=== PATIENT | male | born 1945 | race American Indian/Alaskan Native ===

== ENCOUNTER 2017-04-07 13:00 | Emergency (ER) | payer MEDICARE ==
[2017-04-07] MEDS ORDERED: Sodium Chloride 0.9% 10 ML Syringe FLUSH PRN (13:14)
[2017-04-07] MEDS ORDERED: Iopamidol 755 Mg/ML 100 ML Bottle IVPUSH ONE (13:24)
--- NOTE | 2017-04-07 13:47 | EDM.PDOC ---
ED HPI GENERAL MEDICAL PROBLEM - General Chief Complaint: Lower Extremity Injury/Pain Stated Complaint: [facility] Time Seen by Provider: 04/07/17 13:07 Source of Information: Reports: Patient History Limitations: Reports: No Limitations - History of Present Illness INITIAL COMMENTS - FREE TEXT/NARRATIVE: 72-year-old male presents to the [facility] for evaluation and treatment of low back and left hip pain. Per EMS records the patient onto his left side. He is complaining of left hip pain and low back pain. Did not pass out nor lose consciousness. Upon my exam the patient is alert and orientated. He is complaining of left hip pain and low back pain. Reports bilateral hip pain with movement. He is currently wearing a neck brace as he had neck surgery several months ago. He wears this at all times. He is also reporting some abdominal pain. Denies any loss of consciousness, headaches, nausea or vomiting. Patient's past medical history of renal cell carcinoma, congestive heart failure and diabetes. He is currently being managed by Dr. Rock in [place]. Patient reports that he has been having frequent urinary tract infections the last few months. He has a benign but does not know which antibiotics he is on. - Related Data Allergies Allergy/AdvReac Type Severity Reaction Status Date / Time No Known Allergies Allergy Verified 04/07/17 13:23 Review of Systems - Review of Systems Review Of Systems: See Below GI/Abdominal: Reports: Abdominal Pain. Denies: Nausea, Vomiting Musculoskeletal: Reports: Neck Pain (chronic - no change), Back Pain Neurological: Denies: Headache Trauma Exam - Physical Exam Exam: See Below Exam Limited By: No Limitations General Appearance: Reports: Alert, WD/WN, No Apparent Distress, Obese Head: Reports: Atraumatic, Normocephalic Eyes: Bilateral Eye: PERRL Ears: Reports: Normal External Exam Nose: Reports: Normal Inspection Throat/Mouth: Reports: Normal Inspection, Normal Lips, Normal Voice, No Airway Compromise Neck: Reports: Other (cervical collar - wears at all times) Respiratory Exam: Reports: No Respiratory Distress, Lungs Clear, Normal Breath Sounds Cardiovascular: Reports: Normal Peripheral Pulses, Regular Rate, Rhythm, No Murmur GI/Abdominal: Reports: Normal Bowel Sounds, Tenderness (generalized) Extremities: No Evidence of Injury, Pain with Movement (rotation of the right and left hip) Neurologic: Reports: Alert Skin: Reports: Normal Color, Warm/Dry - [place] Coma Score Best Eye Response (Richard): (4) Open Spontaneously Best Verbal Response (Richard): (5) Oriented Best Motor Response ([place]): (6) Obeys Commands Course - Vital Signs Last Recorded V/S: Last Vital Signs Temp 35.8 C 04/07/17 13:17 Pulse 60 04/07/17 15:06 Resp 24 H 04/07/17 13:17 BP 95/57 L 04/07/17 15:06 Pulse Ox 90 L 04/07/17 13:17 - Orders/Labs/Meds Orders: Active Orders 24 hr Category Date Time Status Cardiac Monitoring [RC] . DIRECTED Care 04/07/17 13:14 Active EKG Documentation Completion [RC] STAT Care 04/07/17 13:14 Active Oxygen Therapy [RC] ASDIRECTED Care 04/07/17 13:14 Active Peripheral IV Care [RC] . DIRECTED Care 04/07/17 13:15 Active Chest 1V Frontal [CR] Stat Exams 04/07/17 14:59 Taken Hip wo Cont Lt [CT] Stat Exams 04/07/17 13:22 Taken CULTURE BLOOD [BC] Stat Lab 04/07/17 14:30 Received CULTURE BLOOD [BC] Stat Lab 04/07/17 14:40 Received CULTURE URINE [RM] Stat Lab 04/07/17 14:26 Received Sodium Chloride 0.9% [Normal Saline] 1,000 ml Med 04/07/17 14:15 Active IV ASDIRECTED Sodium Chloride 0.9% [Saline Flush] Med 04/07/17 13:14 Active 10 ml FLUSH ASDIRECTED PRN Blood Culture x2 Reflex Set [OM.PC] Stat Oth 04/07/17 14:08 Ordered Peripheral IV Insertion Adult [OM.PC] Routine Oth 04/07/17 13:10 Ordered Medication Orders Sodium Chloride (Normal Saline) 1,000 mls @ 75 mls/hr IV ASDIRECTED AURA Last Admin: 04/07/17 14:16 Dose: 75 mls/hr Sodium Chloride (Saline Flush) 10 ml FLUSH ASDIRECTED PRN PRN Reason: Keep Vein Open Last Admin: 04/07/17 13:39 Dose: 10 ml Labs: Laboratory Tests 04/07/17 04/07/17 04/07/17 Range/Units 13:50 13:50 13:50 WBC 14.37 H (4.23-9.07) K/mm3 RBC 2.64 L (4.63-6.08) M/mm3 Hgb 8.4 L (13.7-17.5) gm/L Hct 25.0 L (40.1-51.0) % MCV 94.7 H (79.0-92.2) fl MCH 31.8 (25.7-32.2) pg MCHC 33.6 (32.2-35.5) g/dl RDW Std Deviation 47.2 H (35.1-43.9) fL Plt Count 259 (163-337) K/mm3 MPV 9.9 (9.4-12.3) fl Neut % (Auto) 91.5 H (34.0-67.9) % Lymph % (Auto) 2.6 L (21.8-53.1) % [place] % (Auto) 4.5 L (5.3-12.2) % Eos % (Auto) 0.2 L (0.8-7.0) Baso % (Auto) 0.2 (0.1-1.2) % Neut # (Auto) 13.14 H (1.78-5.38) K/mm3 Lymph # (Auto) 0.37 L (1.32-3.57) K/mm3 [place] # (Auto) 0.65 (0.30-0.82) K/mm3 Eos # (Auto) 0.03 L (0.04-0.54) K/mm3 Baso # (Auto) 0.03 (0.01-0.08) K/mm3 Manual Slide Review Abnormal smear PT 15.3 H (8.0-13.0) SECONDS INR 1.38 Sodium 130 L (136-145) mEq/L Potassium 4.1 (3.5-5.1) mEq/L Chloride 98 (98-107) mEq/L Carbon Dioxide 22 (21-32) mEq/L Anion Gap 14.1 (5-15) BUN 89 H (7-18) mg/dL Creatinine 4.3 H (0.7-1.3) mg/dL Est Cr Clr Drug Dosing 16.78 mL/min Estimated GFR (MDRD) 14 (>60) mL/min BUN/Creatinine Ratio 20.7 H (14-18) Glucose 88 (83-115) mg/dL Lactic Acid (0.4-2.0) mmol/L Calcium 7.7 L (8.5-10.1) mg/dL Total Bilirubin 0.4 (0.2-1.0) mg/dL AST 51 H (15-37) U/L ALT 51 (16-63) U/L Alkaline Phosphatase 121 H (46-116) U/L C-Reactive Protein (<1.0) mg/dL B-Natriuretic Peptide (0-100) pg/mL Total Protein 6.2 L (6.4-8.2) g/dl Albumin 1.7 L (3.4-5.0) g/dl Globulin 4.5 gm/dL Albumin/Globulin Ratio 0.4 L (1-2) Urine Color (Yellow) Urine Appearance (Clear) Urine pH (5.0-8.0) Ur Specific [place] (1.005-1.030) Urine Protein (Negative) Urine Glucose (UA) (Negative) Urine Ketones (Negative) Urine Occult Blood (Negative) Urine Nitrite (Negative) Urine Bilirubin (Negative) Urine Urobilinogen (0.2-1.0) Ur Leukocyte Esterase (Negative) Urine RBC (0-5) /hpf Urine WBC (0-5) /hpf Ur Epithelial Cells (0-5) /hpf Amorphous Sediment (NOT SEEN) /hpf Urine Bacteria (FEW) /hpf Urine Mucus (FEW) /hpf 04/07/17 04/07/17 04/07/17 Range/Units 13:50 13:50 14:27 WBC (4.23-9.07) K/mm3 RBC (4.63-6.08) M/mm3 Hgb (13.7-17.5) gm/L Hct (40.1-51.0) % MCV (79.0-92.2) fl MCH (25.7-32.2) pg MCHC (32.2-35.5) g/dl RDW Std Deviation (35.1-43.9) fL Plt Count (163-337) K/mm3 MPV (9.4-12.3) fl Neut % (Auto) (34.0-67.9) % Lymph % (Auto) (21.8-53.1) % [place] % (Auto) (5.3-12.2) % Eos % (Auto) (0.8-7.0) Baso % (Auto) (0.1-1.2) % Neut # (Auto) (1.78-5.38) K/mm3 Lymph # (Auto) (1.32-3.57) K/mm3 [place] # (Auto) (0.30-0.82) K/mm3 Eos # (Auto) (0.04-0.54) K/mm3 Baso # (Auto) (0.01-0.08) K/mm3 Manual Slide Review PT (8.0-13.0) SECONDS INR Sodium (136-145) mEq/L Potassium (3.5-5.1) mEq/L Chloride (98-107) mEq/L Carbon Dioxide (21-32) mEq/L Anion Gap (5-15) BUN (7-18) mg/dL Creatinine (0.7-1.3) mg/dL Est Cr Clr Drug Dosing mL/min Estimated GFR (MDRD) (>60) mL/min BUN/Creatinine Ratio (14-18) Glucose (83-115) mg/dL Lactic Acid (0.4-2.0) mmol/L Calcium (8.5-10.1) mg/dL Total Bilirubin (0.2-1.0) mg/dL AST (15-37) U/L ALT (16-63) U/L Alkaline Phosphatase (46-116) U/L C-Reactive Protein 19.4 H* (<1.0) mg/dL B-Natriuretic Peptide 1045 H (0-100) pg/mL Total Protein (6.4-8.2) g/dl Albumin (3.4-5.0) g/dl Globulin gm/dL Albumin/Globulin Ratio (1-2) Urine Color Yellow (Yellow) Urine Appearance Slt cloudy H (Clear) Urine pH 6.0 (5.0-8.0) Ur Specific [place] 1.015 (1.005-1.030) Urine Protein Negative (Negative) Urine Glucose (UA) Negative (Negative) Urine Ketones Negative (Negative) Urine Occult Blood 3+ H (Negative) Urine Nitrite Negative (Negative) Urine Bilirubin Negative (Negative) Urine Urobilinogen 1.0 (0.2-1.0) Ur Leukocyte Esterase 2+ H (Negative) Urine RBC 10-20 H (0-5) /hpf Urine WBC 10-20 H (0-5) /hpf Ur Epithelial Cells 0-5 (0-5) /hpf Amorphous Sediment Few H (NOT SEEN) /hpf Urine Bacteria Few (FEW) /hpf Urine Mucus Not seen (FEW) /hpf 04/07/17 Range/Units 14:30 WBC (4.23-9.07) K/mm3 RBC (4.63-6.08) M/mm3 Hgb (13.7-17.5) gm/L Hct (40.1-51.0) % MCV (79.0-92.2) fl MCH (25.7-32.2) pg MCHC (32.2-35.5) g/dl RDW Std Deviation (35.1-43.9) fL Plt Count (163-337) K/mm3 MPV (9.4-12.3) fl Neut % (Auto) (34.0-67.9) % Lymph % (Auto) (21.8-53.1) % [place] % (Auto) (5.3-12.2) % Eos % (Auto) (0.8-7.0) Baso % (Auto) (0.1-1.2) % Neut # (Auto) (1.78-5.38) K/mm3 Lymph # (Auto) (1.32-3.57) K/mm3 [place] # (Auto) (0.30-0.82) K/mm3 Eos # (Auto) (0.04-0.54) K/mm3 Baso # (Auto) (0.01-0.08) K/mm3 Manual Slide Review PT (8.0-13.0) SECONDS INR Sodium (136-145) mEq/L Potassium (3.5-5.1) mEq/L Chloride (98-107) mEq/L Carbon Dioxide (21-32) mEq/L Anion Gap (5-15) BUN (7-18) mg/dL Creatinine (0.7-1.3) mg/dL Est Cr Clr Drug Dosing mL/min Estimated GFR (MDRD) (>60) mL/min BUN/Creatinine Ratio (14-18) Glucose (83-115) mg/dL Lactic Acid 0.8 (0.4-2.0) mmol/L Calcium (8.5-10.1) mg/dL Total Bilirubin (0.2-1.0) mg/dL AST (15-37) U/L ALT (16-63) U/L Alkaline Phosphatase (46-116) U/L C-Reactive Protein (<1.0) mg/dL B-Natriuretic Peptide (0-100) pg/mL Total Protein (6.4-8.2) g/dl Albumin (3.4-5.0) g/dl Globulin gm/dL Albumin/Globulin Ratio (1-2) Urine Color (Yellow) Urine Appearance (Clear) Urine pH (5.0-8.0) Ur Specific [place] (1.005-1.030) Urine Protein (Negative) Urine Glucose (UA) (Negative) Urine Ketones (Negative) Urine Occult Blood (Negative) Urine Nitrite (Negative) Urine Bilirubin (Negative) Urine Urobilinogen (0.2-1.0) Ur Leukocyte Esterase (Negative) Urine RBC (0-5) /hpf Urine WBC (0-5) /hpf Ur Epithelial Cells (0-5) /hpf Amorphous Sediment (NOT SEEN) /hpf Urine Bacteria (FEW) /hpf Urine Mucus (FEW) /hpf Meds: Medications Generic Name Dose Route Start Last Admin Trade Name Freq PRN Reason Stop Dose Admin Sodium Chloride 1,000 mls @ 75 mls/hr 04/07/17 14:15 04/07/17 14:16 Normal Saline IV 75 mls/hr ASDIRECTED AURA Administration Sodium Chloride 10 ml 04/07/17 13:14 04/07/17 13:39 Saline Flush FLUSH 10 ml ASDIRECTED PRN Administration Keep Vein Open Discontinued Medications Generic Name Dose Route Start Last Admin Trade Name Freq PRN Reason Stop Dose Admin Hydromorphone HCl 1 mg 04/07/17 14:43 04/07/17 14:51 Dilaudid IVPUSH 04/07/17 14:44 1 mg ONETIME ONE Administration Ceftriaxone Sodium 2 gm/ 100 mls @ 200 mls/hr 04/07/17 14:09 04/07/17 14:17 Sodium Chloride IV 04/07/17 14:38 200 mls/hr ONETIME ONE Administration Cefepime HCl 1 gm/ Premix 50 mls @ 100 mls/hr 04/07/17 17:06 04/07/17 17:50 IV 04/07/17 17:35 100 mls/hr ONETIME ONE Administration Iopamidol 100 ml 04/07/17 13:24 04/07/17 13:35 Isovue-370 (76%) IVPUSH 04/07/17 13:25 100 ml ONETIME ONE Administration - Radiology Interpretation Free Text/Narrative:: Chest one view Impression: 1. Findings suspicious for mild CHF. 2. Slight left basilar atelectasis. 3. Other incidental findings. Cervical spine CT Impression: 1. Previous surgery. 2. Degenerative change as noted above. 3. Nothing acute is appreciated on CT study of the cervical spine. thoracic spine Ct Impression: 1. Incidental findings. Nothing acute is appreciated on CT study of the thoracic spine. lumbar spine ct Impression: 1. Degenerative change as noted above. 2. Nothing acute is appreciated on CT study of the lumbar spine. head CT Impression: 1. Mild senescent change. 2. Sinus findings likely pre-existing and chronic. 3. Contrast seen within the brain from prior CT exam of the abdomen and pelvis. This limits evaluation for smaller areas of intracranial hemorrhage. Nothing acute is otherwise identified on head CT study. hip left ct Impression: 1. Incidental findings. No acute abnormality is identified on CT study of the left hip. abdomen and pelvis with contrast ct Impression: 1. 2 large fluid collections adjacent to the left kidney pushing the left kidney anteriorly and causing mass effect on the left psoas muscle. 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 Findings may relate to rupture of the renal pelvis from slightly dilated pelvis due to functional UPJ obstruction with rupture due to trauma. 2. 2 cysts within the left kidney. 3. Additional low density abnormality within the more anterior mid aspect of the left kidney does not appear to have a cyst Hounsfield unit measurements of a cyst and could represent a small renal laceration. 4. Other incidental findings as noted above. - Re-Assessments/Exams Free Text/Narrative Re-Assessment/Exam: 04/07/17 17:54 The patient's has presented to the ER. She states that she witnessed the fall. She is reporting that he fell onto the right hip. She states that his legs gave out. This appears to be a chronic problem. Reports that he fell onto his right side and hit his head on a cabinet. He did not lose consciousness. States at the time of the fall he was walking not wearing his neck brace. He presented to the ER with his neck brace on. Reports that his surgery to his neck was several months ago. of patient's is also concerned about his constipation. Reports he has not had a bowel movement in about a week. Labs have returned. white blood cell count is 14.37, hemoglobin is 8.4 and plts 259. PT is 15.3, INR is 1.3. Sodium is 130, potassium 4.1 and chloride is 98. Glucose is 88. Anion gap is 14.1. Creatinine is 4.3. BNP is elevated at 1045. UA has 3+ blood and 2+ leuks CRP is elevated at 19.4 I was able to review the patient's most recent urine culture results. Show that he has 2 strains of Serratia marcescens. I gave him 1 g Rocephin upon arrival to the ER as he meds criteria for shock and I was concerned he was in septic shock from his recent urinary tract infections. I then gave him 1 g of Maxipime after it was confirmed that the infection is susceptible to this. I discussed the case with Dr. Carty of our hospitals public relations senior associate. She feels that given the CT findings he would require higher level of care. I discussed the case with Dr. Cottrell, hospitalist public relations senior associate within [facility]. He agrees to accept the patient. Departure - Departure Time of Disposition: 18:11 Disposition: DC/Tfer to Acute Hospital 02 Condition: serious Clinical Impression: Fall, Kidney laceration - Discharge Information Forms: ED Department Discharge Additional Instructions: Patient to go by air ambulance. Dr. Cottrell and then accepting at [facility] in [place]. - My Orders Last 24 Hours: My Active Orders 04/07/17 13:10 Peripheral IV Insertion Adult [OM.PC] Routine 04/07/17 13:14 Cardiac Monitoring [RC] . DIRECTED EKG Documentation Completion [RC] STAT Oxygen Therapy [RC] ASDIRECTED Sodium Chloride 0.9% [Saline Flush] 10 ml FLUSH ASDIRECTED PRN 04/07/17 13:15 Peripheral IV Care [RC] . DIRECTED 04/07/17 13:22 Hip wo Cont Lt [CT] Stat 04/07/17 14:08 Blood Culture x2 Reflex Set [OM.PC] Stat 04/07/17 14:15 Sodium Chloride 0.9% [Normal Saline] 1,000 ml IV ASDIRECTED 04/07/17 14:26 CULTURE URINE [RM] Stat 04/07/17 14:30 CULTURE BLOOD [BC] Stat 04/07/17 14:40 CULTURE BLOOD [BC] Stat 04/07/17 14:59 Chest 1V Frontal [CR] Stat - Assessment/Plan Last 24 Hours: My Active Orders 04/07/17 13:10 Peripheral IV Insertion Adult [OM.PC] Routine 04/07/17 13:14 Cardiac Monitoring [RC] . DIRECTED EKG Documentation Completion [RC] STAT Oxygen Therapy [RC] ASDIRECTED Sodium Chloride 0.9% [Saline Flush] 10 ml FLUSH ASDIRECTED PRN 04/07/17 13:15 Peripheral IV Care [RC] . DIRECTED 04/07/17 13:22 Hip wo Cont Lt [CT] Stat 04/07/17 14:08 Blood Culture x2 Reflex Set [OM.PC] Stat 04/07/17 14:15 Sodium Chloride 0.9% [Normal Saline] 1,000 ml IV ASDIRECTED 04/07/17 14:26 CULTURE URINE [RM] Stat 04/07/17 14:30 CULTURE BLOOD [BC] Stat 04/07/17 14:40 CULTURE BLOOD [BC] Stat 04/07/17 14:59 Chest 1V Frontal [CR] Stat
[2017-04-07] MEDS ORDERED: cefTRIAXone 2 GM in Sodium Chloride 0.9% 100 ML IV ONE (14:09)
[2017-04-07] MEDS ORDERED: Sodium Chloride 0.9% 1,000 ML IV SCH (14:15)
--- NOTE | 2017-04-07 14:22 | CT ---
CT lumbar spine Technique: Multiple axial sections were obtained from the top of T10 inferiorly to the L5-S1 disc. Reconstructed sagittal and coronal images were reviewed. Disc space narrowing is noted at L5-S1 with vacuum phenomena. Anterior osteophytes are seen at T10-T11. Smaller osteophytes are noted within the lumbar spine. Slight posterior osteophytes are seen at L5-S1. Minimal degenerative apophyseal change is noted within the lower lumbar spine. No fracture or abnormal subluxation is seen. Impression: 1. Degenerative change as noted above. 2. Nothing acute is appreciated on CT study of the lumbar spine. Diagnostic code #2
--- NOTE | 2017-04-07 14:23 | CT ---
CT abdomen and pelvis Technique: Multiple axial sections were obtained from above the dome of the diaphragm inferiorly through the pubic symphysis. Intravenous contrast was utilized. Delayed images were also obtained through the abdomen and pelvis. Findings: Mild atelectasis is seen within both lung bases. Liver shows no focal abnormality. Spleen appears within normal limits. Adrenal glands show no nodule. 2 cysts are seen within the upper left kidney measuring 3.2 cm in size and 3.3 cm in size. Slightly prominent collecting system of the left kidney is seen. There is fluid filled collections being seen appearing to extend outside the renal pelvis on the left side measuring 10.8 cm in size which pushes the kidney anteriorly. Second fluid collection is seen more posteriorly which causes compression of the psoas muscle measuring 10.7 cm cm in size (cranial caudal measurement). These findings do not have the Hounsfield unit measurements of blood and most likely represent areas of urinomas. Findings are suggestive of possible UPJ obstruction with rupture of the renal pelvis with subsequent leakage of urine. Left kidney also shows a low-density area more anteriorly within the mid aspect not representing a simple cyst and possibly due to small renal laceration. Right kidney appears within normal limits. Delayed images shows no contrast excretion from either kidney which likely relates to dehydration. Gallbladder shows no calcified gallstones. Adrenal glands show no nodule. Pancreas is within normal limits. Aorta shows diffuse atherosclerotic change without focal aneurysm. No pelvic mass or adenopathy is seen. Increased stool is noted within the rectosigmoid region. Bone window settings were reviewed which shows mild scattered degenerative change. Nothing acute is seen within the bony structures. Small fat-containing left inguinal hernia is noted. Impression: 1. 2 large fluid collections adjacent to the left kidney pushing the left kidney anteriorly and causing mass effect on the left psoas muscle. 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 Findings may relate to rupture of the renal pelvis from slightly dilated pelvis due to functional UPJ obstruction with rupture due to trauma. 2. 2 cysts within the left kidney. 3. Additional low density abnormality within the more anterior mid aspect of the left kidney does not appear to have a cyst Hounsfield unit measurements of a cyst and could represent a small renal laceration. 4. Other incidental findings as noted above. Diagnostic code #5
[2017-04-07] MEDS ORDERED: HYDROmorphone 1 MG/ML Syringe IVPUSH ONE (14:43)
[2017-04-07 15:19] VITALS: BP 95/57
--- NOTE | 2017-04-07 16:45 | CT ---
CT cervical spine Technique: Multiple axial sections were obtained from above the C1 inferiorly to the bottom of T1. Reconstructed sagittal and coronal images were reviewed. Comparison: Previous MRI cervical spine exam of 06/19/16. Findings: Anterior plate and screws are noted at C5, C6 and C7. Mild disc space narrowing is noted at C3-C4, C45 and C7-T1. Mild scattered anterior endplate osteophytes are seen throughout the cervical spine. Mild degenerative change is scattered within the apophyseal joints. Vertebral bodies and posterior arches are intact with no fracture being seen. There is posterior bulging of the posterior vertebral line of C6 causing mild central canal stenosis. Multiple levels of neural foraminal stenosis is seen. No abnormal subluxation is identified. Impression: 1. Previous surgery. 2. Degenerative change as noted above. 3. Nothing acute is appreciated on CT study of the cervical spine. Diagnostic code #2
--- NOTE | 2017-04-07 16:54 | CT ---
Head CT Technique: Multiple axial sections through the brain were obtained. Intravenous contrast was not utilized. Contrast is seen from prior CT abdomen and pelvis exam. Comparison: No previous intracranial imaging. Findings: Ventricles along with basal cisterns and sulci over the convexities are mildly prominent. Minimal diminished density is noted within portions of the periventricular white matter and basal ganglia compatible with small vessel ischemic demyelination change. Contrast from previous CT abdomen and pelvis exam slightly limits evaluation for smaller areas of intracranial hemorrhage but no larger area of hemorrhage is seen. No midline shift or mass effect is seen. Bone window settings were reviewed which shows no discrete calvarial abnormality. There are areas of mucosal thickening and retention cysts seen within both maxillary sinuses. Mucosal thickening is seen within the ethmoid sinuses. Mastoid sinuses and middle ear cavities are clear. Impression: 1. Mild senescent change. 2. Sinus findings likely pre-existing and chronic. 3. Contrast seen within the brain from prior CT exam of the abdomen and pelvis. This limits evaluation for smaller areas of intracranial hemorrhage. Nothing acute is otherwise identified on head CT study. Diagnostic code #2
--- NOTE | 2017-04-07 16:54 | CT ---
CT thoracic spine Technique: Multiple axial sections through the thoracic spine were obtained. Reconstructed coronal and sagittal images were reviewed. Comparison: No previous thoracic spine imaging. Findings: Scattered anterior osteophytes are seen throughout the thoracic spine. Mild posterior osteophytes are seen. Slight posterior spurring is noted at T7-T8. Vertebral body heights are maintained. No fracture is appreciated. No abnormal subluxation is seen. Visualized ribs appear intact. Mild dependent atelectasis is seen posteriorly within both lung bases. Impression: 1. Incidental findings. Nothing acute is appreciated on CT study of the thoracic spine. Diagnostic code #2
[2017-04-07] MEDS ORDERED: Cefepime 1 GM in Premix Bag 1 BAG IV ONE (17:06)
[2017-04-07] MEDS ORDERED: fentaNYL 100 MCG/2 ML SDV IVPUSH ONE (17:52)
--- NOTE | 2017-04-08 08:28 | CR ---
Chest: Portable view of the chest was obtained. Comparison: Previous chest x-ray of 07/01/15. Heart is slightly enlarged. Tortuous thoracic aorta is seen. Lung markings are increased possibly due to mild pulmonary vascular congestion. This finding is an interval change from previous exam. Slight atelectasis is noted within the left lung base. Previous cervical spine surgery is noted. Bony structures are grossly intact. Impression: 1. Findings suspicious for mild CHF. 2. Slight left basilar atelectasis. 3. Other incidental findings. Diagnostic code #3
--- NOTE | 2017-04-09 07:43 | CT ---
CT left hip Technique: Multiple axial sections through the left hip were obtained. Reconstructed coronal and sagittal images were reviewed. Findings: No hip fracture is identified. Several incidental bone islands are incidentally noted within the femoral head and neck. Left pubic ramus appears without fracture. Impression: 1. Incidental findings. No acute abnormality is identified on CT study of the left hip. Diagnostic code #2 MTDD
== END 2017-04-07 18:20 ==
LOC: JD.ED 13:00
DX: S37.032A Laceration of left kidney, unspecified degree, initial encounter (principal); I50.9 Heart failure, unspecified; E11.9 Type 2 diabetes mellitus without complications; Z85.528 Personal history of other malignant neoplasm of kidney; W19.XXXA Unspecified fall, initial encounter
CPT/HCPCS: 36415; 70450; 71010; 72125; 72128; 72131; 73700; 74177; 80053; 81001; 83605; 83880; 85025; 85610; 86140; 87040; 87086; 93005; 96361; 96365; 96367; 96375; 99285; J0692; J0696; J1170; J7030; J7040; J7050; P9612; Q9967; 99284

== ENCOUNTER 2025-07-24 14:44 | Inpatient (IN) | payer MEDICARE ==
[2025-07-24] MEDS ORDERED: Sodium Chloride 0.9% 10 ML Syringe FLUSH PRN (14:58)
[2025-07-24 15:14] LABS: APPEARANCE,URINE CLEAR (Clear); GLUCOSE,URINE NEGATIVE (Negative); OCCULT BLOOD,URINE NEGATIVE (Negative)
[2025-07-24 15:27] LABS: BASOPHILS ABSOLUTE AUTO 0.0 K/mm3 (0.0-0.2); BASOPHILS PERCENT AUTO 0.2 % (0.0-1.0); EOSINOPHILS ABSOLUTE AUTO 0.0 K/mm3 (0.0-0.4); EOSINOPHILS PERCENT AUTO 0.1 % (0.0-6.0); IMMATURE GRAN ABSOLUTE AUTO 0.07 K/mm3 (0.00-0.05); IMMATURE GRAN PERCENT AUTO 0.5 % (0.0-0.4); LYMPHOCYTES ABSOLUTE AUTO 0.7 K/mm3 (1.0-4.8); LYMPHOCYTES PERCENT AUTO 5.3 % (24.0-44.0); MEAN PLATELET VOLUME 10.9 fl (9.4-12.4); MONOCYTES ABSOLUTE AUTO 0.7 K/mm3 (0.0-0.8); MONOCYTES PERCENT AUTO 5.7 % (0.0-8.0); NEUTROPHILS ABSOLUTE AUTO 11.4 K/mm3 (1.8-7.7); NEUTROPHILS PERCENT AUTO 88.2 % (41.0-71.0); NRBC ABSOLUTE 0.00 (0.00-0.02); NRBC PERCENT 0.0 % (0.0-0.2); PLATELET COUNT,PLT 172 K/mm3 (150-400); RED BLOOD CELL COUNT 3.64 M/mm3 (4.52-5.90); WHITE BLOOD CELL COUNT,WBC 12.91 K/mm3 (3.9-11.3)
[2025-07-24 15:56] LABS: A/G RATIO 0.9 (1-2); ALANINE AMINOTRANSFERASE,ALT 20.0 U/L (16-63); ASPARTATE AMNIOTRANSFERASE,AST 19.0 U/L (15-37); BILIRUBIN TOTAL 1.0 mg/dL (0.2-1.0); CARBON DIOXIDE,CO2 28.0 mEq/L (21-32); CHLORIDE,CL 108.0 mEq/L (98-107); CREATINE KINASE,CK 177.0 U/L (39-308); CREATININE 1.4 mg/dL (0.7-1.3); EST CRCL DRUG DOSING (CG) 46.96 mL/min; ESTIMATED GFR 51.0 mL/min (>60); GLUCOSE RANDOM 142.0 mg/dL (70-99); POTASSIUM,K 4.3 mEq/L (3.5-5.1); PROTEIN TOTAL,TP 6.4 g/dl (6.4-8.2); SODIUM,NA 143.0 mEq/L (136-145); TROPONIN I HIGH SENSITIVITY 31.0 pg/mL (<=76)
[2025-07-24 16:12] LABS: BLOOD UREA NITROGEN,BUN 26.0 mg/dL (7-18)
[2025-07-24] MEDS: Iopamidol 612 MG/ML 100 ML Bottle IVPUSH ONE (16:15)
[2025-07-24] MEDS: Sodium Chloride 0.9% 10 ML Syringe FLUSH ONE (16:15)
[2025-07-24] MEDS ORDERED: Naloxone 0.4 MG/ML SDV IVPUSH PRN (17:37)
[2025-07-25] MEDS ORDERED: 50% Dextrose in Water 50 ML Syringe IVPUSH PRN (12:42)
[2025-07-25 14:25] LABS: INR 1.09
[2025-07-25 14:26] LABS: PTT,PARTIAL THROMBOPLSTIN TIME 32.0 SECONDS (21.7-31.4)
[2025-07-25] MEDS: Insulin Lispro 100 Unit/ML 3 ML KwikPen SUBCUT SCH (17:25)
[2025-07-26] MEDS: Tiotropium Bromide 4 GM Inhalation Spray (2.5mcg/1 dose; 10 doses) INH SCH (08:55)
[2025-07-26] MEDS: Formoterol/Mometasone 200-5 MCG 8.8 GM Inhaler INH SCH (10:59)
[2025-07-26] MEDS ORDERED: Lidocaine 1% 4 ML ONE ×2 (12:11→12:32)
[2025-07-26] MEDS ORDERED: Propofol 200 MG/20 ML SDV ONE (12:12)
[2025-07-26] MEDS ORDERED: EPINEPHrine 1 MG/ML SDV ONE (12:14)
[2025-07-26] MEDS ORDERED: Dexamethasone 4 MG/ML 5 ML MDV ONE (12:14)
[2025-07-26] MEDS ORDERED: fentaNYL 100 MCG/2 ML SDV ONE ×2 (12:15→13:31)
[2025-07-26] MEDS ORDERED: Labetalol 100 MG/20 ML MDV ONE (12:56)
[2025-07-26] MEDS ORDERED: Ondansetron 4 MG/2 ML SDV ONE (12:57)
[2025-07-26] MEDS ORDERED: Metoprolol Tartrate 5 MG/5 ML SDV ONE (13:24)
[2025-07-26] MEDS ORDERED: Ketorolac 15 MG/ML SDV ONE (13:28)
[2025-07-26] MEDS ORDERED: Ondansetron 4 MG/2 ML SDV IVPUSH PRN (13:55)
[2025-07-26] MEDS ORDERED: fentaNYL 100 MCG/2 ML SDV IVPUSH PRN (13:55)
[2025-07-27 04:49] LABS: MEAN PLATELET VOLUME 11.0 fl (9.4-12.4); NRBC ABSOLUTE 0.00 (0.00-0.02); NRBC PERCENT 0.0 % (0.0-0.2); PLATELET COUNT,PLT 121 K/mm3 (150-400); RED BLOOD CELL COUNT 2.75 M/mm3 (4.52-5.90); WHITE BLOOD CELL COUNT,WBC 8.61 K/mm3 (3.9-11.3)
[2025-07-27 05:18] LABS: A/G RATIO 0.7 (1-2); ALANINE AMINOTRANSFERASE,ALT 14.0 U/L (16-63); ASPARTATE AMNIOTRANSFERASE,AST 9.0 U/L (15-37); BILIRUBIN TOTAL 0.4 mg/dL (0.2-1.0); BLOOD UREA NITROGEN,BUN 24.0 mg/dL (7-18); CARBON DIOXIDE,CO2 24.0 mEq/L (21-32); CHLORIDE,CL 112.0 mEq/L (98-107); CREATININE 1.4 mg/dL (0.7-1.3); EST CRCL DRUG DOSING (CG) 46.96 mL/min; ESTIMATED GFR 51.0 mL/min (>60); GLUCOSE RANDOM 158.0 mg/dL (70-99); POTASSIUM,K 4.3 mEq/L (3.5-5.1); PROTEIN TOTAL,TP 5.0 g/dl (6.4-8.2); SODIUM,NA 144.0 mEq/L (136-145)
[2025-07-27] MEDS: Magnesium Sulfate 2 GM/50 mL 2 GM in Premix Bag 1 BAG IV ONE (09:51)
[2025-07-28 04:52] LABS: BASOPHILS ABSOLUTE AUTO 0.0 K/mm3 (0.0-0.2); BASOPHILS PERCENT AUTO 0.4 % (0.0-1.0); EOSINOPHILS ABSOLUTE AUTO 0.3 K/mm3 (0.0-0.4); EOSINOPHILS PERCENT AUTO 3.7 % (0.0-6.0); IMMATURE GRAN ABSOLUTE AUTO 0.05 K/mm3 (0.00-0.05); IMMATURE GRAN PERCENT AUTO 0.7 % (0.0-0.4); LYMPHOCYTES ABSOLUTE AUTO 1.1 K/mm3 (1.0-4.8); LYMPHOCYTES PERCENT AUTO 14.5 % (24.0-44.0); MEAN PLATELET VOLUME 10.9 fl (9.4-12.4); MONOCYTES ABSOLUTE AUTO 0.5 K/mm3 (0.0-0.8); MONOCYTES PERCENT AUTO 7.1 % (0.0-8.0); NEUTROPHILS ABSOLUTE AUTO 5.6 K/mm3 (1.8-7.7); NEUTROPHILS PERCENT AUTO 73.6 % (41.0-71.0); NRBC ABSOLUTE 0.00 (0.00-0.02); NRBC PERCENT 0.0 % (0.0-0.2); PLATELET COUNT,PLT 130 K/mm3 (150-400); RED BLOOD CELL COUNT 2.65 M/mm3 (4.52-5.90); WHITE BLOOD CELL COUNT,WBC 7.65 K/mm3 (3.9-11.3)
[2025-07-28 05:31] LABS: A/G RATIO 0.7 (1-2); ALANINE AMINOTRANSFERASE,ALT 12.0 U/L (16-63); ASPARTATE AMNIOTRANSFERASE,AST 11.0 U/L (15-37); BILIRUBIN TOTAL 0.4 mg/dL (0.2-1.0); BLOOD UREA NITROGEN,BUN 27.0 mg/dL (7-18); CARBON DIOXIDE,CO2 26.0 mEq/L (21-32); CHLORIDE,CL 114.0 mEq/L (98-107); CREATININE 1.5 mg/dL (0.7-1.3); EST CRCL DRUG DOSING (CG) 43.83 mL/min; ESTIMATED GFR 47.0 mL/min (>60); GLUCOSE RANDOM 175.0 mg/dL (70-99); POTASSIUM,K 4.0 mEq/L (3.5-5.1); PROTEIN TOTAL,TP 5.0 g/dl (6.4-8.2); SODIUM,NA 147.0 mEq/L (136-145)
[2025-07-29 04:50] LABS: BASOPHILS ABSOLUTE AUTO 0.0 K/mm3 (0.0-0.2); BASOPHILS PERCENT AUTO 0.6 % (0.0-1.0); EOSINOPHILS ABSOLUTE AUTO 0.4 K/mm3 (0.0-0.4); EOSINOPHILS PERCENT AUTO 5.6 % (0.0-6.0); IMMATURE GRAN ABSOLUTE AUTO 0.04 K/mm3 (0.00-0.05); IMMATURE GRAN PERCENT AUTO 0.6 % (0.0-0.4); LYMPHOCYTES ABSOLUTE AUTO 1.3 K/mm3 (1.0-4.8); LYMPHOCYTES PERCENT AUTO 17.6 % (24.0-44.0); MEAN PLATELET VOLUME 10.7 fl (9.4-12.4); MONOCYTES ABSOLUTE AUTO 0.5 K/mm3 (0.0-0.8); MONOCYTES PERCENT AUTO 6.6 % (0.0-8.0); NEUTROPHILS ABSOLUTE AUTO 5.0 K/mm3 (1.8-7.7); NEUTROPHILS PERCENT AUTO 69.0 % (41.0-71.0); NRBC ABSOLUTE 0.00 (0.00-0.02); NRBC PERCENT 0.0 % (0.0-0.2); PLATELET COUNT,PLT 134 K/mm3 (150-400); RED BLOOD CELL COUNT 2.64 M/mm3 (4.52-5.90); WHITE BLOOD CELL COUNT,WBC 7.27 K/mm3 (3.9-11.3)
[2025-07-29 05:09] LABS: A/G RATIO 0.6 (1-2); ALANINE AMINOTRANSFERASE,ALT 14.0 U/L (16-63); ASPARTATE AMNIOTRANSFERASE,AST 11.0 U/L (15-37); BILIRUBIN TOTAL 0.5 mg/dL (0.2-1.0); BLOOD UREA NITROGEN,BUN 31.0 mg/dL (7-18); CARBON DIOXIDE,CO2 24.0 mEq/L (21-32); CHLORIDE,CL 110.0 mEq/L (98-107); CREATININE 1.4 mg/dL (0.7-1.3); EST CRCL DRUG DOSING (CG) 46.96 mL/min; ESTIMATED GFR 51.0 mL/min (>60); GLUCOSE RANDOM 163.0 mg/dL (70-99); POTASSIUM,K 4.9 mEq/L (3.5-5.1); PROTEIN TOTAL,TP 4.9 g/dl (6.4-8.2); SODIUM,NA 141.0 mEq/L (136-145)
[2025-07-30 04:13] VITALS: BP 141/90; PULSE 71
[2025-07-30 04:39] LABS: BASOPHILS ABSOLUTE AUTO 0.1 K/mm3 (0.0-0.2); BASOPHILS PERCENT AUTO 0.8 % (0.0-1.0); EOSINOPHILS ABSOLUTE AUTO 0.3 K/mm3 (0.0-0.4); EOSINOPHILS PERCENT AUTO 4.7 % (0.0-6.0); IMMATURE GRAN ABSOLUTE AUTO 0.04 K/mm3 (0.00-0.05); IMMATURE GRAN PERCENT AUTO 0.6 % (0.0-0.4); LYMPHOCYTES ABSOLUTE AUTO 1.2 K/mm3 (1.0-4.8); LYMPHOCYTES PERCENT AUTO 18.7 % (24.0-44.0); MEAN PLATELET VOLUME 10.2 fl (9.4-12.4); MONOCYTES ABSOLUTE AUTO 0.5 K/mm3 (0.0-0.8); MONOCYTES PERCENT AUTO 8.3 % (0.0-8.0); NEUTROPHILS ABSOLUTE AUTO 4.4 K/mm3 (1.8-7.7); NEUTROPHILS PERCENT AUTO 66.9 % (41.0-71.0); NRBC ABSOLUTE 0.00 (0.00-0.02); NRBC PERCENT 0.0 % (0.0-0.2); PLATELET COUNT,PLT 142 K/mm3 (150-400); RED BLOOD CELL COUNT 2.77 M/mm3 (4.52-5.90); WHITE BLOOD CELL COUNT,WBC 6.54 K/mm3 (3.9-11.3)
[2025-07-30 05:14] LABS: A/G RATIO 0.7 (1-2); ALANINE AMINOTRANSFERASE,ALT 18.0 U/L (16-63); ASPARTATE AMNIOTRANSFERASE,AST 16.0 U/L (15-37); BILIRUBIN TOTAL 0.6 mg/dL (0.2-1.0); BLOOD UREA NITROGEN,BUN 31.0 mg/dL (7-18); CARBON DIOXIDE,CO2 24.0 mEq/L (21-32); CHLORIDE,CL 110.0 mEq/L (98-107); CREATININE 1.3 mg/dL (0.7-1.3); EST CRCL DRUG DOSING (CG) 50.57 mL/min; ESTIMATED GFR 56.0 mL/min (>60); GLUCOSE RANDOM 142.0 mg/dL (70-99); POTASSIUM,K 4.7 mEq/L (3.5-5.1); PROTEIN TOTAL,TP 5.1 g/dl (6.4-8.2); SODIUM,NA 140.0 mEq/L (136-145)
== END 2025-07-30 10:08 | DRG 481 ==
LOC: JD.ED 14:44 → JD.MS 17:34
PROVIDERS: ADMIT Family Medicine; ATTEND Internal Medicine
PROC: 5A09357 Assistance with Respiratory Ventilation, Less than 24 Consecutive Hours, Continuous Positive Airway Pressure (ICD-10-PCS; 2025-07-25)
PROC: 0QS734Z Reposition Left Upper Femur with Internal Fixation Device, Percutaneous Approach (ICD-10-PCS; principal; 2025-07-26 12:30)
DX: S72.142A Displaced intertrochanteric fracture of left femur, initial encounter for closed fracture (principal); E87.0 Hyperosmolality and hypernatremia; N17.9 Acute kidney failure, unspecified; W18.30XA Fall on same level, unspecified, initial encounter; H54.7 Unspecified visual loss; I50.9 Heart failure, unspecified; J44.9 Chronic obstructive pulmonary disease, unspecified; G47.30 Sleep apnea, unspecified; E11.22 Type 2 diabetes mellitus with diabetic chronic kidney disease; F32.A Depression, unspecified; G47.33 Obstructive sleep apnea (adult) (pediatric); K21.9 Gastro-esophageal reflux disease without esophagitis; K58.9 Irritable bowel syndrome, unspecified; F17.200 Nicotine dependence, unspecified, uncomplicated; D64.89 Other specified anemias; R09.02 Hypoxemia; I71.43 Infrarenal abdominal aortic aneurysm, without rupture; I72.3 Aneurysm of iliac artery; R91.1 Solitary pulmonary nodule; N63.0 Unspecified lump in unspecified breast; I70.209 Unspecified atherosclerosis of native arteries of extremities, unspecified extremity; E78.00 Pure hypercholesterolemia, unspecified; N18.31 Chronic kidney disease, stage 3a; E87.8 Other disorders of electrolyte and fluid balance, not elsewhere classified; E88.09 Other disorders of plasma-protein metabolism, not elsewhere classified; Y92.89 Other specified places as the place of occurrence of the external cause; Z85.528 Personal history of other malignant neoplasm of kidney; Z79.899 Other long term (current) drug therapy; Z79.891 Long term (current) use of opiate analgesic; Z79.84 Long term (current) use of oral hypoglycemic drugs
CPT/HCPCS: 36415; 70450; 71250; 72125; 73552; 74176; 80053; 81001; 82550; 83735; 84484; 85025; 86140; 93005; J7030; Q9967; 01210; 64450; 71045; 71045-26; 76000; 76000-26; 82947; 85027; 85610; 85730; 86850; 86900; 86901; 87641; 93010; 94640; 94660; 94667; 94668; 94761; 97110-GP; 97161-GP; 97167-GO; 97530-GO; 97530-GP; 97535-GO; 99100; 99222; 99232; 99239; 99284; A9270-GY; C1713; C1776; J0169; J0665; J0690; J1100; J1171; J1650; J1885; J1920; J2003; J2270; J2405; J2704; J3010; J3475; J3480; J3490; J7070; U0002